=== PATIENT | female | born 1995 | race African-American/Black ===

== ENCOUNTER 2017-08-26 15:57 | Emergency (ER) | payer OTHER, MEDICAID ==
[2017-08-26] MEDS ORDERED: SODIUM CHLORIDE 0.9% FLUSH 10 ML FLUSH IV FLUSH (16:30)
[2017-08-26 16:47] LABS: AUTOMATED NEUTROPHIL # 2.4 TH/MM3 (1.8-7.7); BASOPHIL % 0.7 % (0.0-2.0); EOSINOPHIL # 0.1 TH/MM3 (0-0.4); EOSINOPHIL % 2.2 % (0.0-4.0); HEMATOCRIT 39.4 % (35.0-46.0); HEMO FLAGS DIFF FINAL; HEMOGLOBIN 12.8 GM/DL (11.6-15.3); LYMPH % 48.4 % (9.0-44.0); LYMPHOCYTE # 2.8 TH/MM3 (1.0-4.8); MEAN CELL VOLUME 81.3 FL (80.0-100.0); MEAN CORPUSCULAR HEMOGLOBIN 26.4 PG (27.0-34.0); MEAN CORPUSCULAR HGB CONC 32.4 % (32.0-36.0); MEAN PLATELET VOLUME 7.1 FL (7.0-11.0); MONO % 8.1 % (0.0-8.0); MONOCYTE # 0.5 TH/MM3 (0-0.9); NEUT % 40.6 % (16.0-70.0); PLATELET COUNT 252 TH/MM3 (150-450); RED BLOOD COUNT 4.84 MIL/MM3 (4.00-5.30); RED CELL DISTRIBUTION WIDTH 12.9 % (11.6-17.2); WHITE BLOOD COUNT 5.9 TH/MM3 (4.0-11.0)
[2017-08-26 16:54] LABS: BACTERIA, URINE OCC /hpf; BILIRUBIN, URINE NEG (NEG); BLOOD, URINE NEG (NEG); COMMENT (UR) CULTURE INDICATED; CULTURE IF INDICATED CULTURE INDICATED; GLUCOSE,URINE NEG (NEG); KETONE, URINE NEG (NEG); MUCUS URINE FEW /lpf (OCC); NITRITE,URINE NEG (NEG); PH, URINE 6.5 (5.0-8.5); SQUAMOUS EPITHELIAL CELL URINE 1 /hpf (0-5); URINE COLOR YELLOW (YELLW/STRAW); URINE LEUKOCYTE ESTERASE SMALL (NEG)
[2017-08-26 17:04] LABS: ANION GAP 5 MEQ/L (5-15); BLOOD UREA NITROGEN 7 MG/DL (7-18); CALCIUM 8.8 MG/DL (8.5-10.1); CHLORIDE 106 MEQ/L (98-107); CREATININE 0.55 MG/DL (0.50-1.00); GLOMERULAR FILTRATION RATE 171 ML/MIN (>89); GLUCOSE,RANDOM 81 MG/DL (74-106); POTASSIUM 3.5 MEQ/L (3.5-5.1); SODIUM (NA) 139 MEQ/L (136-145)
[2017-08-26] MEDS: IOHEXOL 350 MG/ML 10 ML VIAL (for RAD DIAG) IVCONTRAST (17:54)
== END 2017-08-26 18:50 | disposition home or self-care (01) ==
LOC: NEPD 15:57
DX: N39.0 Urinary tract infection, site not specified (principal); B96.20 Unspecified Escherichia coli [E. coli] as the cause of diseases classified elsewhere
CPT/HCPCS: 74177; 80048; 81001; 84703; 85025; 87077; 87086; 87186; 99285

== ENCOUNTER 2018-01-23 10:53 | Emergency (ER) | payer OTHER ==
[~2018-01-23] VITALS: Ht 162.6 cm; Wt 100.0 kg
[~2018-01-23 10:53] MED LIST: MACR100C2 PO
[2018-01-23 10:56] VITALS: BP 130/63; PULSE 84; RESP 16; TEMP 98.2; O2SAT 99
[2018-01-23] MEDS ORDERED: SODIUM CHLOR 0.9% 1000 ML INJ 1,000 ML IV SCH (11:23)
[2018-01-23] MEDS ORDERED: SODIUM CHLORIDE 0.9% FLUSH 10 ML FLUSH IV FLUSH PRN (11:30)
--- NOTE | 2018-01-23 11:30 | PD ---
HPI Chief Complaint: Abdominal Pain Time Seen by Provider: 11:07 Travel History International Travel<30 days: No Contact w/Intl Traveler<30days: No Traveled to known affect area: No History of Present Illness HPI 22-year-old female with a history of PCOS presents emergency department complaining of right lower quadrant pain that worsened yesterday. Patient says that she went to her primary care physician today and he recommended she come to the emergency department for evaluation and rule out of appendicitis. Patient says over the last few months she has had similar pain located in the right lower quadrant. The pain is always been in that area but says that whenever she presses on her mid abdomen and left abdominal area that she has some "hardness" of her abdomen. Says it also feels a little tender however, denies pain similar to what she has in the right lower quadrant. She denies radiation of pain denies exacerbating or relieving factors. Says her pain currently is 5/10 but at its worst is 10/10. Described as "pulling pain". she said previously her pain would last for several minutes before resolving spontaneously. She says this occurs 3-4 times a week. Says she has occasional nausea without vomiting. No diarrhea. Says she presented to the emergency department earlier this year and was given antibiotics for urinary tract infection. Says she has not followed up with an ledger clerk or rn homecare recently. Says her last menstrual period was in December of this year. Says previous to that her menstrual period was in October 2015. Because of her PCOS, this is normal for her. She denies urinary discomfort or vaginal discharge. Her last bowel movement was yesterday and she noted that she had some bright red blood blood in the toilet and after wiping. Says she normally has bowel movements every day to every 3 days and requires laxatives occasionally. PFSH Past Medical History Hx Anticoagulant Therapy: No Cardiovascular Problems: No Chemotherapy: No Cerebrovascular Accident: No Diabetes: No Reproductive: Yes (PCOS) Respiratory: No Influenza Vaccination: No ?: Not : 0 Para: 0 Past Surgical History Surgical History: No Previous Surgery Social History Alcohol Use: No Tobacco Use: No Substance Use: No Allergies-Medications (Allergen,Severity, Reaction): Coded Allergies: No Known Allergies (Unverified , 01/23/18) Reported Meds & Prescriptions Reported Meds & Active Scripts Active No Active Prescriptions or Reported Medications Review of Systems Except as stated in HPI: all other systems reviewed are Neg Physical Exam Narrative GENERAL: Well-developed, nourished in no apparent distress SKIN: Focused skin assessment warm/dry. HEAD: Atraumatic. Normocephalic. EYES: Pupils equal and round. No scleral icterus. No injection or drainage. ENT: No nasal bleeding or discharge. Mucous membranes pink and moist. No tonsillar hypertrophy or exudates NECK: Trachea midline. No JVD. No lymphadenopathy CARDIOVASCULAR: Regular rate and rhythm. No murmur appreciated. RESPIRATORY: No accessory muscle use. Clear to auscultation. Breath sounds equal bilaterally. GASTROINTESTINAL: Abdomen soft, non-tender, nondistended. Normoactive bowel sounds. Mild tenderness to palpation of the right lower quadrant without rebound tenderness. Negative Rovsing's, negative McBurney's, negative Benavides' s. No pain with flexion of the hip. No CVA tenderness MUSCULOSKELETAL: No obvious deformities. No clubbing. No cyanosis. No edema. NEUROLOGICAL: Awake and alert. No obvious cranial nerve deficits. Motor grossly within normal limits. Normal speech. PSYCHIATRIC: Appropriate mood and affect; insight and judgment normal. Data Data Last Documented VS Vital Signs Date Time Temp Pulse Resp B/P (MAP) Pulse Ox O2 Delivery O2 Flow Rate FiO2 01/23/18 12:03 100 Room Air 01/23/18 10:56 98.2 84 16 130/63 (85) Orders Orders Complete Blood Count With Diff (01/23/18 11:23) Comprehensive Metabolic Panel (01/23/18 11:23) Lipase (01/23/18 11:23) Prothrombin Time / Inr (Pt) (01/23/18 11:23) Act Partial Throm Time (Ptt) (01/23/18 11:23) Urinalysis - C+S If Indicated (01/23/18 11:23) Iv Access Insert/Monitor (01/23/18 11:23) Ecg Monitoring (01/23/18 11:23) Oximetry (01/23/18 11:23) Sodium Chlor 0.9% 1000 Ml Inj (Ns 1000 M (01/23/18 11:23) Sodium Chloride 0.9% Flush (Ns Flush) (01/23/18 11:30) Ed Urine Pregnancytest Poc (01/23/18 11:23) Wet Prep Profile (01/23/18 13:32) Ed Discharge Order (01/23/18 14:34) Labs Laboratory Tests Test 01/23/18 11:32 01/23/18 11:35 01/23/18 13:49 Urine Color YELLOW Urine Turbidity HAZY Urine pH 6.0 Urine Specific [place] 1.021 Urine Protein NEG mg/dL Urine Glucose (UA) NEG mg/dL Urine Ketones NEG mg/dL Urine Occult Blood NEG Urine Nitrite NEG Urine Bilirubin NEG Urine Urobilinogen 2.0 mg/dL Urine Leukocyte Esterase NEG Urine WBC 3 /hpf Urine Squamous Epithelial Cells 4 /hpf Urine Mucus FEW /lpf Microscopic Urinalysis Comment CULT NOT INDICATED White Blood Count 5.0 TH/MM3 Red Blood Count 4.96 MIL/MM3 Hemoglobin 13.0 GM/DL Hematocrit 40.4 % Mean Corpuscular Volume 81.4 FL Mean Corpuscular Hemoglobin 26.3 PG Mean Corpuscular Hemoglobin Concent 32.3 % Red Cell Distribution Width 12.9 % Platelet Count 254 TH/MM3 Mean Platelet Volume 7.4 FL Neutrophils (%) (Auto) 37.8 % Lymphocytes (%) (Auto) 51.0 % Monocytes (%) (Auto) 8.1 % Eosinophils (%) (Auto) 2.1 % Basophils (%) (Auto) 1.0 % Neutrophils # (Auto) 1.9 TH/MM3 Lymphocytes # (Auto) 2.6 TH/MM3 Monocytes # (Auto) 0.4 TH/MM3 Eosinophils # (Auto) 0.1 TH/MM3 Basophils # (Auto) 0.1 TH/MM3 CBC Comment DIFF FINAL Differential Comment Prothrombin Time 10.0 SEC Prothromb Time International Ratio 1.0 RATIO Activated Partial Thromboplast Time 26.5 SEC Blood Urea Nitrogen 7 MG/DL Creatinine 0.56 MG/DL Random Glucose 81 MG/DL Total Protein 7.7 GM/DL Albumin 4.0 GM/DL Calcium Level 8.7 MG/DL Alkaline Phosphatase 83 U/L Aspartate Amino Transf (AST/SGOT) 27 U/L Alanine Aminotransferase (ALT/SGPT) 33 U/L Total Bilirubin 0.2 MG/DL Sodium Level 140 MEQ/L Potassium Level 3.7 MEQ/L Chloride Level 106 MEQ/L Carbon Dioxide Level 25.7 MEQ/L Anion Gap 8 MEQ/L Estimat Glomerular Filtration Rate 167 ML/MIN Lipase 107 U/L Clue Cells (Wet Prep) NONE SEEN Vaginal Trichomonas (Wet Prep) NONE SEEN Vaginal Yeast (Wet Prep) NONE SEEN MDM Medical Decision Making Medical Screen Exam Complete: Yes Emergency Medical Condition: Yes Differential Diagnosis Acute cystitis, urinary tract infection, ovarian cyst, ovarian rupture, ovarian torsion, menstrual cramping Narrative Course 22y female presents emergency department for acute on chronic right lower quadrant pain that worsened yesterday. She presented to her primary care physician who recommended she come to the hospital for evaluation to r/o appendicitis. Urine Preg negative. Labs are stable. Urinalysis noncontributory. 1 L normal saline administered. Patient did not require pain medications today. After review the EMR it appears that patient was here in August of this year and was diagnosed with urinary tract infection. She also had a CT abdomen pelvis without acute abnormalities. Says that she did not take her Macrobid because this medication made her feel nauseous. I performed a pelvic exam to determine if this was of gynecological etiology. This is noncontributory. Patient did have some white discharge. Patient says she is monogamous with one partner. I have low suspicion of an STI based off the patient's history and physical. No cervical motion tenderness. I discussed this case my attending. I do not believe that a CT or any other imaging was necessary today. By the time my attending evaluated the patient, her pain was gone. She denies any nausea vomiting. Advised on the risk and benefits of imaging studies. Advised that she should follow-up with a rn homecare for further evaluation. She should also follow-up with her primary care physician for further evaluation. Diagnosis Primary Impression: Abdominal pain Qualified Codes: R10.31 - Right lower quadrant pain Referrals: Donna Reese MD Bag Inspector Additional Instructions: If you develop fever, chills, severe abdominal pain, persistent vomiting or inability to eat return to the emergency department. Your pelvic exam today did not include a Pap smear. It is important to followup with a rn homecare on a regular basis to be tested for cervical cancer as we do not perform that test from the emergency department. You should followup with your rn homecare or with the health department to get tested for other sexually transmitted diseases like HIV and syphilis if there is suspicion of other infections, as we do not test for these in the emergency department It is possible that your pain is coming from your PCOS. Scripts No Active Prescriptions or Reported Meds Disposition: 01 DISCHARGE HOME Condition: Stable Alana Hanna Jan 23, 2018 11:30
[2018-01-23 11:58] LABS: AUTOMATED NEUTROPHIL # 1.9 TH/MM3 (1.8-7.7); BASOPHIL # 0.1 TH/MM3 (0-0.2); EOSINOPHIL # 0.1 TH/MM3 (0-0.4); EOSINOPHIL % 2.1 % (0.0-4.0); HEMATOCRIT 40.4 % (35.0-46.0); LYMPHOCYTE # 2.6 TH/MM3 (1.0-4.8); MEAN CELL VOLUME 81.4 FL (80.0-100.0); MEAN CORPUSCULAR HEMOGLOBIN 26.3 PG (27.0-34.0); MEAN CORPUSCULAR HGB CONC 32.3 % (32.0-36.0); MEAN PLATELET VOLUME 7.4 FL (7.0-11.0); MONO % 8.1 % (0.0-8.0); MONOCYTE # 0.4 TH/MM3 (0-0.9); NEUT % 37.8 % (16.0-70.0); PLATELET COUNT 254 TH/MM3 (150-450); RED BLOOD COUNT 4.96 MIL/MM3 (4.00-5.30); RED CELL DISTRIBUTION WIDTH 12.9 % (11.6-17.2)
[2018-01-23 12:03] VITALS: O2SAT 100
[2018-01-23 12:28] LABS: ALT (GPT) 33 U/L (9-42); AST (GOT) 27 U/L (16-38); BICARBONATE 25.7 MEQ/L (21.0-32.0); BLOOD UREA NITROGEN 7 MG/DL (7-18); CALCIUM 8.7 MG/DL (8.5-10.1); CHLORIDE 106 MEQ/L (98-107); CREATININE 0.56 MG/DL (0.50-1.00); GLOMERULAR FILTRATION RATE 167 ML/MIN (>89); GLUCOSE,RANDOM 81 MG/DL (74-106); SODIUM (NA) 140 MEQ/L (136-145)
[2018-01-23 12:30] LABS: ALKALINE PHOSPHATASE 83 U/L (45-117); TOTAL BILIRUBIN ADULT 0.2 MG/DL (0.2-1.0); TOTAL PROTEIN 7.7 GM/DL (6.4-8.2)
[2018-01-23 12:31] LABS: BILIRUBIN, URINE NEG (NEG); BLOOD, URINE NEG (NEG); GLUCOSE,URINE NEG (NEG); KETONE, URINE NEG (NEG); MUCUS URINE FEW /lpf (OCC); NITRITE,URINE NEG (NEG); SQUAMOUS EPITHELIAL CELL URINE 4 /hpf (0-5); URINE COLOR YELLOW (YELLW/STRAW); URINE LEUKOCYTE ESTERASE NEG (NEG)
--- NOTE | 2018-01-23 13:17 | PD ---
Data Data Last Documented VS Vital Signs Date Time Temp Pulse Resp B/P (MAP) Pulse Ox O2 Delivery O2 Flow Rate FiO2 01/23/18 12:03 100 Room Air 01/23/18 10:56 98.2 84 16 130/63 (85) Orders Orders Complete Blood Count With Diff (01/23/18 11:23) Comprehensive Metabolic Panel (01/23/18 11:23) Lipase (01/23/18 11:23) Prothrombin Time / Inr (Pt) (01/23/18 11:23) Act Partial Throm Time (Ptt) (01/23/18 11:23) Urinalysis - C+S If Indicated (01/23/18 11:23) Iv Access Insert/Monitor (01/23/18 11:23) Ecg Monitoring (01/23/18 11:23) Oximetry (01/23/18 11:23) Sodium Chlor 0.9% 1000 Ml Inj (Ns 1000 M (01/23/18 11:23) Sodium Chloride 0.9% Flush (Ns Flush) (01/23/18 11:30) Ed Urine Pregnancytest Poc (01/23/18 11:23) Labs Laboratory Tests Test 01/23/18 11:32 01/23/18 11:35 Urine Color YELLOW Urine Turbidity HAZY Urine pH 6.0 Urine Specific [place] 1.021 Urine Protein NEG mg/dL Urine Glucose (UA) NEG mg/dL Urine Ketones NEG mg/dL Urine Occult Blood NEG Urine Nitrite NEG Urine Bilirubin NEG Urine Urobilinogen 2.0 mg/dL Urine Leukocyte Esterase NEG Urine WBC 3 /hpf Urine Squamous Epithelial Cells 4 /hpf Urine Mucus FEW /lpf Microscopic Urinalysis Comment CULT NOT INDICATED White Blood Count 5.0 TH/MM3 Red Blood Count 4.96 MIL/MM3 Hemoglobin 13.0 GM/DL Hematocrit 40.4 % Mean Corpuscular Volume 81.4 FL Mean Corpuscular Hemoglobin 26.3 PG Mean Corpuscular Hemoglobin Concent 32.3 % Red Cell Distribution Width 12.9 % Platelet Count 254 TH/MM3 Mean Platelet Volume 7.4 FL Neutrophils (%) (Auto) 37.8 % Lymphocytes (%) (Auto) 51.0 % Monocytes (%) (Auto) 8.1 % Eosinophils (%) (Auto) 2.1 % Basophils (%) (Auto) 1.0 % Neutrophils # (Auto) 1.9 TH/MM3 Lymphocytes # (Auto) 2.6 TH/MM3 Monocytes # (Auto) 0.4 TH/MM3 Eosinophils # (Auto) 0.1 TH/MM3 Basophils # (Auto) 0.1 TH/MM3 CBC Comment DIFF FINAL Differential Comment Prothrombin Time 10.0 SEC Prothromb Time International Ratio 1.0 RATIO Activated Partial Thromboplast Time 26.5 SEC Blood Urea Nitrogen 7 MG/DL Creatinine 0.56 MG/DL Random Glucose 81 MG/DL Total Protein 7.7 GM/DL Albumin 4.0 GM/DL Calcium Level 8.7 MG/DL Alkaline Phosphatase 83 U/L Aspartate Amino Transf (AST/SGOT) 27 U/L Alanine Aminotransferase (ALT/SGPT) 33 U/L Total Bilirubin 0.2 MG/DL Sodium Level 140 MEQ/L Potassium Level 3.7 MEQ/L Chloride Level 106 MEQ/L Carbon Dioxide Level 25.7 MEQ/L Anion Gap 8 MEQ/L Estimat Glomerular Filtration Rate 167 ML/MIN Lipase 107 U/L MDM Supervised Visit with SIMÓN: Yes Narrative Course I, Dr. Mcclendon, have reviewed the advance practice practitioner's documentation and am in agreement, met with the patient face to face, made the diagnosis, and the medical decision making was done by me. *My assessment and Findings: This patient has had chronic right lower quadrant pain for at least 6 months. It is a daily pain. She eats without any trouble. No nausea or vomiting. We saw her for this 5 months ago and she had a CT showing normal appendix. I have no clinical suspicion that this is acute appendicitis based on all of this. She does have PCO S and likely could be ovarian cystic disease. She may benefit from outpatient pelvic ultrasound but I do not feel that needs to be done emergently. Her is negative. KYLER Warner is doing pelvic exam to rule out infectious cause. Her labs are perfect Scripts No Active Prescriptions or Reported Meds Condition: Gordo Raya MD Jan 23, 2018 13:17
== END 2018-01-23 15:02 | disposition home or self-care (01) ==
LOC: NEPC 10:53
DX: R10.31 Right lower quadrant pain (principal); E28.2 Polycystic ovarian syndrome
CPT/HCPCS: 80053; 81001; 83690; 84703; 85025; 85610; 85730; 87210; 99283; J7030